=== PATIENT | male | born 1970 | race Two or more races ===

== ENCOUNTER 2016-11-05 01:38 | Emergency (ER) | payer SELFPAY ==
[2016-11-05] MEDS ORDERED: LIDOCAINE 1%/EPINEPHRINE INJ 20 ML VIAL INJ ONE (04:21)
[2016-11-05] MEDS ORDERED: DIPH/PERTUSS(ACELL)/TETANUS VAC/PF 0.5 ML SYR (>=10YO) IM ONE (04:22)
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
[2016-11-05 06:35] VITALS: BP 117/83
== END 2016-11-05 06:35 | disposition home or self-care (01) ==
LOC: ER 01:38
PROC: 0HQ1XZZ Repair Face Skin, External Approach (ICD-10-PCS; principal; 2016-11-05)
DX: S02.40DA Maxillary fracture, left side, initial encounter for closed fracture (principal); S01.81XA Laceration without foreign body of other part of head, initial encounter; S80.212A Abrasion, left knee, initial encounter; Y04.2XXA Assault by strike against or bumped into by another person, initial encounter; Y92.59 Other trade areas as the place of occurrence of the external cause; I10 Essential (primary) hypertension
CPT/HCPCS: 99284; 90471; 70450; 72125; 90715; 12011; L0120; J3490

== ENCOUNTER 2016-11-12 14:09 | Emergency (ER) | payer SELFPAY ==
[2016-11-12 14:17] VITALS: BP 127/74
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
== END 2016-11-12 15:05 | disposition home or self-care (01) ==
LOC: ER 14:09
DX: Z48.02 Encounter for removal of sutures (principal)